=== PATIENT | male | born 1955 | race Caucasian/White ===

== ENCOUNTER 2023-07-25 16:02 | Emergency (ER) | payer MEDICARE, MEDICAID, SELFPAY ==
[2023-07-25] VITALS (7 sets, daily range): BP systolic 127–177; BP diastolic 79–110; PULSE 81–89; RESP 17–22; TEMP 36.6; O2SAT 94–99; BMI 25.0
[2023-07-25 16:29] LABS: Basophils % 0.3 %; Eosinophils % 0.2 %; Lymphocytes # 0.8 10^3/uL (0.8-4.8); Lymphocytes % 8.2 %; Mean Corpuscular HGB Conc 33.6 g/dL (30-55); Mean Corpuscular Hemoglobin 30.2 pg (27-33); Mean Corpuscular Volume 89.7 fl (82-101); Mean Platelet Volume 10.8 fL (7.4-10.4); Monocytes # 0.3 10^3/uL (0.2-0.9); Monocytes % 2.9 %; Neutrophils # 8.69 10^3/uL (1.8-7.7); Neutrophils % 88.1 %; Nucleated Red Blood Cells % 0 %; Platelet Count 202 10^3/cmm (157-399); Red Blood Count 5.24 10^6/uL (3.85-5.65); Red Cell Distribution Width 13.2 % (12.1-15.1); White Blood Count 9.87 10^3/uL (3.29-11.43)
--- NOTE | 2023-07-25 16:30 | CTR_ITS ---
PROCEDURE INFORMATION: Exam: CT Abdomen And Pelvis Without Contrast Exam date and time: 07/25/2023 5:02 PM Age: 68 years old Clinical indication: Abdominal pain; Flank; Right; Additional info: Flank pain TECHNIQUE: Imaging protocol: Computed tomography of the abdomen and pelvis without contrast. Radiation optimization: All CT scans at this facility use at least one of these dose optimization techniques: automated exposure control; mA and/or kV adjustment per patient size (includes targeted exams where dose is matched to clinical indication); or iterative reconstruction. COMPARISON: No relevant prior studies available. RADIATION DOSE METRICS: Total DLP (mGy-cm): 464 FINDINGS: Lungs: Subsegmental bibasilar atelectasis. The visualized lung bases are otherwise clear. Diaphragm: Moderate hiatal hernia with the GE junction and a portion of the gastric cardia/body above the diaphragm. Liver: No evidence of focal hepatic lesion within limitation of a noncontrast exam. Gallbladder and bile ducts: Gallbladder is unremarkable. No evidence of intra-hepatic or extra-hepatic biliary dilatation. Pancreas: Grossly unremarkable. Spleen: Multiple splenic calcifications compatible with sequela of a remote granulomatous process. Otherwise grossly unremarkable. Adrenal glands: Grossly unremarkable. Kidneys and ureters: Mild-moderate right-sided hydronephrosis secondary to an obstructive 5.5 mm transverse by 7 mm craniocaudal proximal ureteral stone. Additional nonobstructive stones bilaterally measuring up to 5 mm on the left and 4 mm on the right. No left-sided hydronephrosis or ureteral stone. Stomach and bowel: Diverticulosis without evidence of acute diverticulitis. No bowel obstruction or perienteric inflammatory changes. There is prominence of the ascending colonic submucosal fat suggestive of sequela of chronic inflammation. There is a 5 x 5 cm left-sided inguinal hernia containing a segment of nonobstructed sigmoid colon. Appendix: Normal retrocecal appendix. Intraperitoneal space: No evidence of free air or fluid collection. Vasculature: No evidence of aneurysmal dilitation of abdominal aorta. Lymph nodes: No evidence of adenopathy. Urinary bladder: Grossly unremarkable. Reproductive: Enlarged prostate measuring 5 cm. Consider correlation with serum laboratory findings and outpatient urologic evaluation. Bones/joints: No evidence of acute fracture or aggresive osseous lesion. L4-L5 and L5-S1 disc bulges results in mild-moderate foraminal stenosis. Soft tissues: No evidence of fluid collection or hematoma in the superficial soft tissues. CT/CT kidney stone [id number] IMPRESSION: 1. Mild-moderate right-sided hydronephrosis secondary to an obstructive 5.5 mm transverse by 7 mm craniocaudal proximal ureteral stone. 2. Left-sided inguinal hernia containing a segment of nonobstructed sigmoid colon. Follow-up surgical evaluation is recommended.
--- NOTE | 2023-07-25 16:31 | ED_ITS ---
HPI - Abdominal Pain 2 General: Chief Complaint: Abdominal Pain Stated Complaint: lower rt abd pain Time Seen by Provider: 07/25/23 16:23 Source: patient Mode of arrival: ambulatory History of Present Illness: 68-year-old male presents emergency room with complaint of right flank pain that is progressively worsening for the last couple of days. Its gotten to the point now its continuous. He has a history of renal stones. Pain radiates from the flank down to the right groin. He has had episodes of hematuria in the past none recently. Denies dysuria urgency or frequency no fever sweats or chills. He is tried various [id number] medications for the flank pain in the relief of pain MD elicited complaint: flank pain Onset (ago): day(s) (2) Quality: sharp Exacerbating factors: nothing Relieving factors: nothing Associated Symptoms: Denies anorexia, belching, bloating, change in bowel habits, change in stool character, chills, coffee ground emesis, constipation, GI cramping, diarrhea, dyspepsia, dysuria, excessive flatus, fever(s), heartburn, hematochezia, hematuria, hematemesis, fecal incontinence, loose stools, melena, nausea, poor appetite, syncope and vomiting Review of Systems 2 Const: Denies: fever(s) or chills Card: Denies: syncope Resp: Denies: dyspnea GI: Denies: nausea, vomiting, hematemesis, coffee ground emesis, heartburn, diarrhea, constipation, bloating, GI cramping, belching, excessive flatus, fecal incontinence, change in bowel habits, change in stool character, hematochezia or melena : Denies: dysuria or hematuria Musc: Denies: neck pain or back pain Skin/Breast: Denies: rash PFS ED 2 PFSH: Medical History (Updated 07/25/23 @ 18:01 by Anup Ren DO) Nephrolithiasis Physical Exam 2 Const: COMMON NORMALS: no acute distress GENERAL APPEARANCE: cooperative and comfortable ORIENTATION/CONSCIOUSNESS: Yes awake, Yes oriented to person, Yes oriented to place and Yes oriented to time HENMT: COMMON NORMALS: normocephalic, atraumatic and hearing grossly normal bilaterally HEAD & SCALP: normocephalic and atraumatic Resp: COMMON NORMALS: normal respiratory effort, No retractions, No use of accessory muscles and clear to auscultation bilaterally AUSCULTATION: clear to auscultation bilaterally Cardio: COMMON NORMALS: regular rate, regular rhythm and No murmurs present (Cardio) RATE: regular rate RHYTHM: regular rhythm GI: COMMON NORMALS: Soft to palpation and No hepatosplenomegaly present A USCULTATION: Yes normoactive bowel sounds PALPATION: Yes Soft to palpation, No Tenderness to palpation present (GI), No Guarding due to palpation present (GI) and Yes No hepatosplenomegaly present Extremity: COMMON NORMALS: normal to inspection, capillary refill normal, no clubbing, cyanosis or edema, no calf tenderness and no pedal edema Neuro: SENSORIUM/ORIENTATION: Yes oriented to person, Yes oriented to place and Yes oriented to time Skin: COMMON NORMALS: no rashes or lesions noted GENERAL SKIN EXAM: no rashes or lesions noted Course 2 Vital Signs: Vital signs: Vital Signs Temperature 97.9 F 07/25/23 16:09 Pulse Rate 84 07/25/23 18:00 Respiratory Rate 20 H 07/25/23 18:00 Blood Pressure 137/84 07/25/23 18:00 Pulse Oximetry 96 07/25/23 18:00 Oxygen Delivery Me thod Room Air 07/25/23 18:00 MDM - Abdominal Pain Medical Decision Making Left nephrolithiasis. Pain controlled discharge home strain urine hydrocodone tamsulosin: Promethazine. Case management to make arrangements for outpatient follow-up with urology. If pain uncontrolled return Medical Records I reviewed the patient's medical records. Lab Data I reviewed the patient's lab results. 07/25/23 15:36 07/25/23 15:36 Labs/Radiology: Radiology Impressions Abdomen/Pelvis CT 07/25/23 16:30 IMPRESSION: 1. Mild-moderate right-sided hydronephrosis secondary to an obstructive 5.5 mm transverse by 7 mm craniocaudal proximal ureteral stone. 2. Left-sided inguinal hernia containing a segment of nonobstructed sigmoid colon. Follow-up surgical evaluation is recommended. Laboratory Results WBC 9.87 10^3/uL (3.29-11.43) 07/25/23 15:36 RBC 5.24 10^6/uL (3.85-5.65) 07/25/23 15:36 Hgb 15.80 g/dL (11.27-16.99) 07/25/23 15:36 Hct 47.0 % (37-53) 07/25/23 15:36 MCV 89.7 fl (82-101) 07/25/23 15:36 MCH 30.2 pg (27-33) 07/25/23 15:36 MCHC 33.6 g/dL (30-55) 07/25/23 15:36 RDW 13.2 % (12.1-15.1) 07/25/23 15:36 Plt Count 202 10^3/cmm (157-399) 07/25/23 15:36 MPV 10.8 fL (7.4-10.4) H 07/25/23 15:36 Neut % (Auto) 88.1 % 07/25/23 15:36 Lymph % (Auto) 8.2 % 07/25/23 15:36 Tucker % (Auto) 2.9 % 07/25/23 15:36 Eos % (Auto) 0.2 % 07/25/23 15:36 Baso % (Auto) 0.3 % 07/25/23 15:36 Neut # (Auto) 8.69 10^3/uL (1.8-7.7) H 07/25/23 15:36 Lymph # (Auto) 0.8 10^3/uL (0.8-4.8) 07/25/23 15:36 Tucker # (Auto) 0.3 10^3/uL (0.2-0.9) 07/25/23 15:36 Eos # (Auto) 0.0 10^3/uL (0.0-0.8) 07/25/23 15:36 Baso # (Auto) 0.0 10^3/uL (0.0-0.1) 07/25/23 15:36 Nucleated RBC % (auto) 0 % 07/25/23 15:36 Nucleated RBCs # 0.0 /100WBC 07/25/23 15:36 Sodium 144 mmol/L (136-145) 07/25/23 15:36 Potassium 3.8 mmol/L (3.5-5.1) 07/25/23 15:36 Chloride 103 mmol/L (98-107) 07/25/23 15:36 Carbon Dioxide 28 mmol/L (22-29) 07/25/23 15:36 Anion Gap 16.8 (5-19) 07/25/23 15:36 BUN 11 mg/dL (8-23) 07/25/23 15:36 Creatinine 1.0 mg/dL (0.7-1.2) 07/25/23 15:36 GFR Calculation 74.3 mL/min (90-130) L 07/25/23 15:36 Glucose 121 mg/dL (65-115) H 07/25/23 15:36 Calculated Osmolality 299 mOsm/kg (285-295) H 07/25/23 15:36 Calcium 9.1 mg/dL (8.5-10.5) 07/25/23 15:36 Total Bilirubin 0.8 mg/dL (0.15-1.2) 07/25/23 15:36 AST 22 U/L (0-40) 07/25/23 15:36 ALT 18 U/L (0-41) 07/25/23 15:36 Alkaline Phosphatase 82 U/L (40-130) 07/25/23 15:36 Total Protein 7.5 g/dL (6.6-8.7) 07/25/23 15:36 Albumin 4.5 g/dL (3.5-5.2) 07/25/23 15:36 Globulin 3.0 g/dL (1.3-4.6) 07/25/23 15:36 Lipase 42 U/L (13-60) 07/25/23 15:36 Urine Color Yellow (Yellow) 07/25/23 17:40 Urine Appearance Clear (CLEAR) 07/25/23 17:40 Urine pH 6 (5-7) 07/25/23 17:40 Ur Specific Central 1.020 (1.005-1.030) 07/25/23 17:40 Urine Protein Neg (Negative) 07/25/23 17:40 Urine Glucose (UA) Norm (Normal) 07/25/23 17:40 Urine Ketones 2+ (Negative) H 07/25/23 17:40 Urine Blood 3+ (Negative) H 07/25/23 17:40 Urine Nitrate Negative (Negative) 07/25/23 17:40 Urine Bilirubin Neg (Negative) 07/25/23 17:40 Urine Urobilinogen Norm mg/dL (Negative) 07/25/23 17:40 Ur Leukocyte Esterase Negative (Negative) 07/25/23 17:40 Urine RBC 25-40 /hpf (0-2) H 07/25/23 17:40 Urine WBC 0-4 /hpf (0-5) H 07/25/23 17:40 Ur Squamous Epith Cells 0-4 /hpf (0-5) H 07/25/23 17:40 Amorphous Sediment Not Reportable 07/25/23 17:40 Urine Bacteria Trace /hpf (NONE) 07/25/23 17:40 All radiology interpretation(s) finalized by discharge Discharge Plan Discharge Patient Disposition: Home Clinical Impression: Nephrolithiasis Condition: Stable Prescriptions: New hydrocodone-acetaminophen 5-325 mg tablet 1 tab PO Q6H PRN (Reason: pain) Qty: 15 0RF ondansetron HCl 4 mg tablet 4 mg PO Q6H PRN (Reason: nausea and vomiting) Qty: 20 0RF tamsulosin 0.4 mg capsule 0.4 mg PO .Twice daily Qty: 20 0RF Discharge Orders: Discharge ED (Routine); Ordered 07/25/23 Ordered By: Anup Ren Referrals: Lloyd Velasco DO [Physician] - Patient Instructions: Kidney Stones (ED), Opioid Safety, Pain Management Activity Restrictions/Additional Instructions: Thank you for choosing [facility] for your healthcare needs today. Please realize this is an emergency room and that we are providing you with a medical screening exam and this may not be complete and all inclusive of all the testing and or work up that you may need to determine your ailment or severity of your illness. It is very important that you follow up as instructed or that you return to the Emergency Department should you have concerns or if your condition changes or worsens in any way. Case management make arrangements for you to have follow-up with urology if pain is uncontrolled return Coding Level of Care Code ED Jigger Machine Operator for Nichole Yee
[2023-07-25] MEDS: morphine 4 mg/mL SDV 1 mL IVP (16:37)
[2023-07-25] MEDS: sodium chloride 0.9% 1,000 ML 999 ML IV (16:41)
[2023-07-25 16:49] LABS: Alanine Aminotransferase 18 U/L (0-41); Albumin Level 4.5 g/dL (3.5-5.2); Alkaline Phosphatase 82 U/L (40-130); Anion Gap 16.8 (5-19); Aspartate Amino Transferase 22 U/L (0-40); Blood Urea Nitrogen 11 mg/dL (8-23); Calcium 9.1 mg/dL (8.5-10.5); Carbon Dioxide 28 mmol/L (22-29); Chloride 103 mmol/L (98-107); Glomerular Filtration Rate 74.3 mL/min (90-130); Glucose 121 mg/dL (65-115); Lipase 42 U/L (13-60); Osmolality Calculated 299 mOsm/kg (285-295); Potassium 3.8 mmol/L (3.5-5.1); Sodium 144 mmol/L (136-145); Total Bilirubin 0.8 mg/dL (0.15-1.2); Total Protein 7.5 g/dL (6.6-8.7)
[2023-07-25] MEDS: metoclopramide 5 mg/mL SDV 2 mL 10 MG IVP (16:49)
[2023-07-25] MEDS: HYDROmorphone 1 mg/mL INJ 1 mL IVP (17:18)
[2023-07-25 17:56] LABS: Add Urine Culture? Yes; Add Urine Microscopic? YES; Bacteria Urine TRACE /hpf; Bilirubin Urine Neg (Negative); Blood Urine 3+ (Negative); Glucose Urine UA Norm (Normal); Ketones Urine 2+ (Negative); Leukocyte Esterase Urine Negative (Negative); Nitrate Urine Negative (Negative); Protein Urine Neg (Negative); RBC Urine 25-40 /hpf (0-2); Squamous Epithelial Cell Urine 0-4 /hpf (0-5); Urine Appearance Clear (CLEAR); Urine Color Yellow (Yellow); Urobilinogen Urine Norm (Negative); WBC Urine 0-4 /hpf (0-5); pH Urine 6 (5-7)
--- NOTE | 2023-07-29 08:50 | DCPLANNER ---
I faxed patients urology referral to [facility] per patients request on 07/29/23 at 0849. Fax sent to: [phone].
== END 2023-07-25 18:30 | disposition home or self-care (01) ==
PROVIDERS: Emergency Provider Family Medicine
DX: N13.2 Hydronephrosis with renal and ureteral calculous obstruction (principal); Z87.442 Personal history of urinary calculi
CPT/HCPCS: 74176; 80053; 81001; 83690; 85025; 87086; 96361; 96374; 96375; 99285; J1170; J2270; J2765; J7030